=== PATIENT | male | born 1970 | race African-American/Black ===

== ENCOUNTER 2017-04-07 18:44 | Emergency (ER) | payer MEDICAID ==
[~2017-04-07] VITALS: Ht 182.9 cm; Wt 105.0 kg
[2017-04-07] MEDS ORDERED: TETANUS, DIPHTHERIA, PERTUSSIS VAC/PF 0.5ML (>7YR OLD) IM ONE (20:15)
[2017-04-07] MEDS ORDERED: KETOROLAC 60MG/2ML VIAL IM ONE (20:15)
[2017-04-07] MEDS ORDERED: BACITRACIN ZINC OINT UDPKT TOP ONE (20:15)
[2017-04-07] MEDS ORDERED: LIDOCAINE HCL 1%/EPI 1:200,000 30 ML VIAL MC ONE (20:15)
[2017-04-07 22:05] VITALS: BP 140/88
== END 2017-04-07 22:06 | disposition home or self-care (01) ==
LOC: ER 18:51
DX: S81.811A Laceration without foreign body, right lower leg, initial encounter (principal); S50.811A Abrasion of right forearm, initial encounter; V23.4XXA Motorcycle driver injured in collision with car, pick-up truck or van in traffic accident, initial encounter; Y93.89 Activity, other specified; Y92.488 Other paved roadways as the place of occurrence of the external cause
CPT/HCPCS: 73090; 73590; 90471; 90715; 96372; 99284; J1885; X7700; Z7610

== ENCOUNTER 2017-04-15 20:39 | Emergency (ER) | payer MEDICAID ==
[~2017-04-15] VITALS: Ht 182.9 cm; Wt 97.0 kg
[2017-04-15 21:26] VITALS: BP 144/98
== END 2017-04-15 21:35 | disposition left against medical advice (07) ==
LOC: ER 20:39
DX: Z53.21 Procedure and treatment not carried out due to patient leaving prior to being seen by health care provider (principal)

== ENCOUNTER 2017-04-16 18:16 | Emergency (ER) | payer MEDICAID ==
[~2017-04-16] VITALS: Ht 188 cm; Wt 92.0 kg
[2017-04-16 23:37] VITALS: BP 145/82
== END 2017-04-16 23:49 | disposition home or self-care (01) ==
LOC: ER 18:16
DX: Z48.02 Encounter for removal of sutures (principal)
CPT/HCPCS: 99283; X7700; Z7610